=== PATIENT | female | born 1970 ===

== ENCOUNTER 2021-12-27 17:55 | Emergency (ER) | payer BC ==
[2021-12-27] MEDS ORDERED: Alum Hydrox/Mag Hydrox/Simeth 30 ML, Lidocaine 2% 15 ML PO ONE ×2 (18:50)
[2021-12-27 19:33] LABS: ESTIMATED GFR 104 mL/min (>60)
[2021-12-27] MEDS ORDERED: Magnesium Citrate Solution 296 ML Bottle PO ONE (20:27)
[2021-12-27] MEDS ORDERED: Nitrofurantoin Monohydrate/Macrocrystalline 100 MG Cap PO ONE (20:29)
== END 2021-12-27 20:48 | disposition home or self-care (01) ==
LOC: JD.ED 17:55
DX: R07.89 Other chest pain (principal); N39.0 Urinary tract infection, site not specified; R31.9 Hematuria, unspecified
CPT/HCPCS: 36415; 71045; 74018; 80053; 81001; 83735; 84484; 85025; 85379; 86140; 87086; 93005; 99285; A9270